=== PATIENT | male | born 1965 | race Caucasian/White ===

== ENCOUNTER 2024-10-28 08:04 | Emergency (ER) | payer MEDICAID ==
[2024-10-28 08:35] LABS: BASOPHILS ABSOLUTE AUTO 0.14 K/uL (0.00-0.10); BASOPHILS PERCENT AUTO 1.2 % (0.1-1.3); EOSINOPHILS ABSOLUTE AUTO 0.28 K/uL (0.00-0.40); EOSINOPHILS PERCENT AUTO 2.5 % (0.0-5.4); IMMATURE GRAN ABSOLUTE AUTO 0.05 K/uL (0.00-0.23); IMMATURE GRAN PERCENT AUTO 0.4 % (0.0-0.7); LYMPHOCYTES ABSOLUTE AUTO 1.96 K/uL (0.8-3.3); LYMPHOCYTES PERCENT AUTO 17.2 % (11.4-47.7); MONOCYTES ABSOLUTE AUTO 0.72 K/uL (0.20-0.90); MONOCYTES PERCENT AUTO 6.3 % (3.3-12.6); NEUTROPHILS ABSOLUTE AUTO 8.23 K/uL (1.0-7.6); NEUTROPHILS PERCENT AUTO 72.4 % (40.0-78.1); PLATELET COUNT,PLT 395 K/uL (130-375); RED BLOOD CELL COUNT 3.56 M/uL (4.14-5.76); WHITE BLOOD CELL COUNT,WBC 11.4 K/uL (3.2-11.0)
[2024-10-28] MEDS: Lidocaine 2% Jelly 10 ML Urojet MUCMEM ONE (08:50)
[2024-10-28 08:53] LABS: BLOOD UREA NITROGEN,BUN 48.0 mg/dL (7-18); CARBON DIOXIDE,CO2 27.0 mmol/L (21-32); CHLORIDE,CL 95.0 mmol/L (100-108); CREATININE 1.4 mg/dL (0.8-1.3); EST CRCL DRUG DOSING (CG) 46.07 mL/min; ESTIMATED GFR 57.0 mL/min (>60); POTASSIUM,K 4.9 mmol/L (3.6-5.2); SODIUM,NA 129.0 mmol/L (140-148)
[2024-10-28 08:56] LABS: GLUCOSE RANDOM 542.0 mg/dL (74-106)
[2024-10-28] MEDS ORDERED: 50% Dextrose in Water 50 ML Syringe IVPUSH PRN ×2 (09:31→09:49)
[2024-10-28 09:32] LABS: APPEARANCE,URINE CLOUDY (CLEAR); GLUCOSE,URINE 500 mg/dL (NEGATIVE); OCCULT BLOOD,URINE TRACE-LYSED (NEGATIVE)
[2024-10-28 09:47] LABS: SQUAMOUS EPITHELIAL CELLS,UR NOT SEEN /HPF
[2024-10-28] MEDS: Insulin Lispro 100 Unit/ML 3 ML KwikPen SUBCUT ONE (09:57)
[2024-10-28] MEDS: Insulin Glargine,Human Rec. Analog 100 Units/ML 3 ML Pen SUBCUT ONE (10:01)
[2024-10-28] MEDS: Naloxone 0.4 MG/ML SDV IVPUSH PRN (12:06)
[2024-10-28 16:22] LABS: BASE EXCESS ARTERIAL 1.6 mm/L; BICARBONATE,ARTERIAL 25.8 mmol/L (22.0-26.0); O2 SATURATION ARTERIAL 98.4 % (95.0-98.0); OXYHEMOGLOBIN 95.6 %; PCO2 ARTERIAL 41.7 mmHg (35.0-42.0); PO2 ARTERIAL 103.0 mmHg (75.0-100.0); TOTAL HEMOGLOBIN 11.5 g/dL (13.5-18.0)
[2024-10-28 17:09] LABS: TSH ULTRASENSITIVE 2.39 uIU/mL (0.358-3.740)
[2024-10-28] MEDS: Gadoteridol 279.3 MG/ML 15 ML SDV IV SCH (18:22)
== END 2024-10-28 23:44 ==
LOC: JP.ED 08:04
DX: N40.1 Benign prostatic hyperplasia with lower urinary tract symptoms (principal); R33.8 Other retention of urine; I10 Essential (primary) hypertension; I25.2 Old myocardial infarction; E11.9 Type 2 diabetes mellitus without complications; Z79.899 Other long term (current) drug therapy; Z79.4 Long term (current) use of insulin; Z88.8 Allergy status to other drugs, medicaments and biological substances; Z87.891 Personal history of nicotine dependence
CPT/HCPCS: 36415; 36600; 51702; 70450; 70553; 80048; 81001; 82009; 82140; 82607; 82803; 82947; 84443; 85025; 87086; 87088; 96374; 99285; A9579; J0696; J1815; J2312; J7030; A9270-GY